=== PATIENT | male | born 1945 | race Caucasian/White ===

== ENCOUNTER 2018-08-06 21:17 | Emergency (ER) | payer MEDICARE, OTHER ==
[~2018-08-06] VITALS: Ht 193 cm; Wt 138.7 kg
[2018-08-06 21:22] VITALS: BP 161/66
[2018-08-06 22:17] LABS: ALANINE AMINOTRANSFERASE 27 U/L (12-78); ANION GAP 7 mmol/L (5-15); CALCIUM 8.5 mg/dL (8.5-10.1); CHLORIDE 108 mmol/L (98-107)
[2018-08-06 22:22] LABS: ALKALINE PHOSPHATASE 197 U/L (45-117); BILIRUBIN,TOTAL 1.2 mg/dL (0.2-1.0); CREATININE 1.04 mg/dL (0.7-1.3)
[2018-08-06 22:23] LABS: MD YES
[2018-08-06 22:24] LABS: MEAN CORPUSCULAR HEMOGLOBIN 29.2 pg (27.5-34.5); MEAN CORPUSCULAR HGB CONC 33.7 g/dL (33.2-36.2); MEAN CORPUSCULAR VOLUME 86.8 fL (81-97); MEAN PLATELET VOLUME 10.3 fL (7.4-10.4); PLATELET COUNT 81 x10^3/uL (130-400); RED BLOOD COUNT 4.03 x10^6/uL (4.38-5.82); RED CELL DISTRIBUTION WIDTH 20.5 % (9.4-14.8)
[2018-08-06 22:26] LABS: LYMPHS% (MANUAL) 20 % (22-44); MONOS#(MANUAL) 0.63 x10^3/uL (0.3-2.7); MONOS% (MANUAL) 18 % (2-9); SEG#(MANUAL) 2.17 x10^3/uL (1.8-6.8); SEGS% (MANUAL) 62 % (42-75)
[2018-08-06 22:27] LABS: <PLATELET ESTIMATE> DECREASED; <PLT MORPHOLOGY> NORMAL PLT MORPH; ANISOCYTOSIS 1+; HYPOCHROMIA 1+; TARGET CELLS 1+
[2018-08-06] MEDS ORDERED: FUROSEMIDE 40 MG TABLET ONE (22:46)
[2018-08-06] MEDS ORDERED: HYDROcodone/APAP 5/325 TABLET ONE (22:46)
[2018-08-06] MEDS ORDERED: FUROSEMIDE 20 MG TABLET PO ONE (23:00)
[2018-08-06] MEDS ORDERED: HYDROcodone/APAP 5/325 TABLET PO ONE (23:00)
== END 2018-08-06 23:10 | disposition home or self-care (01) ==
LOC: ED 23:04
DX: R60.0 Localized edema (principal); I10 Essential (primary) hypertension
CPT/HCPCS: 36415; 71045; 80053; 83880; 85025; 93005; 99284

== ENCOUNTER 2018-10-08 20:20 | Inpatient (IN) | payer MEDICARE ==
[~2018-10-08] VITALS: Ht 193 cm; Wt 136.9 kg
[2018-10-08] MEDS ORDERED: ONDANSETRON 2MG/ML, 2ML ONE (20:53)
[2018-10-08] MEDS ORDERED: FAMOTIDINE 20 MG/2 ML ONE (20:54)
[2018-10-08] MEDS ORDERED: FAMOTIDINE 20 MG/2 ML IVP ONE (21:00)
[2018-10-08] MEDS ORDERED: ONDANSETRON 2MG/ML, 2ML IVPush ONE (21:00)
[2018-10-08] MEDS ORDERED: SODIUM CHLORIDE FLUSH 10ML SYR IVF ONE (21:00)
[2018-10-08 21:03] LABS: MEAN CORPUSCULAR HEMOGLOBIN 30.6 pg (27.5-34.5); MEAN CORPUSCULAR HGB CONC 33.9 g/dL (33.2-36.2); MEAN CORPUSCULAR VOLUME 90.3 fL (81-97); RED BLOOD COUNT 4.13 x10^6/uL (4.38-5.82); RED CELL DISTRIBUTION WIDTH 18.1 % (9.4-14.8)
[2018-10-08 21:10] LABS: INTERNATIONAL NORMALIZED RATIO 1.32 (0.93-1.1); PROTHROMBIN TIME 13.8 Seconds (9.6-11.5)
[2018-10-08 21:13] LABS: ALANINE AMINOTRANSFERASE 21 U/L (12-78); ALBUMIN 3.2 g/dL (3.4-5.0); ANION GAP 7 mmol/L (5-15); CALCIUM 8.8 mg/dL (8.5-10.1); CHLORIDE 113 mmol/L (98-107); CREATININE 1.05 mg/dL (0.7-1.3)
[2018-10-08 21:15] LABS: ALKALINE PHOSPHATASE 155 U/L (45-117); BILIRUBIN,TOTAL 1.9 mg/dL (0.2-1.0); TOTAL PROTEIN 7.1 g/dL (6.4-8.2)
[2018-10-08 21:23] LABS: TROPONIN I 0.022 ng/mL (0.000-0.045)
[2018-10-08 21:24] LABS: BASOPHILS # (AUTO) 0.01 x10^3/uL (0-0.1); BASOPHILS % (AUTO) 0 % (0-1); EOSINOPHILS # (AUTO) 0.12 x10^3/uL (0-0.4); EOSINOPHILS % (AUTO) 2 % (1-7); LYMPHOCYTES % (AUTO) 12 % (22-44); MD SCAN; MEAN PLATELET VOLUME 10.1 fL (7.4-10.4); MONOCYTES # (AUTO) 0.76 x10^3/uL (0.2-0.8); MONOCYTES % (AUTO) 15 % (2-9); NEUTROPHILS % (AUTO) 71 % (42-75); PLATELET COUNT 97 x10^3/uL (130-400)
--- NOTE | 2018-10-08 21:45 | NUR ---
SBAR report received from RN, Meryl. Pt back to room from CT at this time.
[2018-10-08] MEDS ORDERED: OCTREOTIDE 500 MCG in SODIUM CHLORIDE 0.9% 249 ML IV PRN (22:14)
[2018-10-08] MEDS ORDERED: DIPHENHYDRAMINE 50 MG/ML, 1ML ONE (22:18)
[2018-10-08] MEDS ORDERED: OCTREOTIDE 100MCG/ML, 1ML (0.1MG/ML) ONE ×2 (22:18→22:36)
[2018-10-08] MEDS ORDERED: OCTREOTIDE 100MCG/ML, 1ML (0.1MG/ML) IV ONE (22:30)
[2018-10-08] MEDS ORDERED: DIPHENHYDRAMINE 50 MG/ML, 1ML IVPush ONE (22:30)
--- NOTE | 2018-10-08 22:42 | NUR ---
Dr. Squires at bedside to evaluate pt and discuss ED findings. IV octreotide infusing.
--- NOTE | 2018-10-08 23:05 | NUR ---
Octreotide stopped per ERP. Pt ambulated to bathroom, no assistance required.
--- NOTE | 2018-10-08 23:12 | NUR ---
Isaac HERNANDEZ, at bedside to evaluate pt for admission.
--- NOTE | 2018-10-08 23:28 | NUR ---
Telephone SBAR report given to RNToyin.
[2018-10-08] MEDS ORDERED: ONDANSETRON 2MG/ML, 2ML IVPush PRN (23:30)
[2018-10-08] MEDS ORDERED: GOLYTELY 4,000ML ORAL.SOL PO ONE (23:30)
[2018-10-09 00:14] VITALS: BP 139/67
[2018-10-09] MEDS: SODIUM CHLORIDE FLUSH 10ML SYR IVF SCH ×3 (01:21→21:00)
[2018-10-09] MEDS ORDERED: ROPINIROLE 0.25MG TABLET PO SCH (01:30)
[2018-10-09] MEDS ORDERED: DIPHENHYDRAMINE 50 MG/ML, 1ML IVPush ONE (01:30)
[2018-10-09 02:49] VITALS: BP 135/63
[2018-10-09 03:37] LABS: ALANINE AMINOTRANSFERASE 21 U/L (12-78); ALBUMIN 3.2 g/dL (3.4-5.0); ANION GAP 7 mmol/L (5-15); CALCIUM 8.3 mg/dL (8.5-10.1); CHLORIDE 112 mmol/L (98-107); CREATININE 1.32 mg/dL (0.7-1.3)
[2018-10-09 03:39] LABS: ALKALINE PHOSPHATASE 142 U/L (45-117); BILIRUBIN,TOTAL 2.2 mg/dL (0.2-1.0); TOTAL PROTEIN 6.8 g/dL (6.4-8.2)
[2018-10-09 03:51] LABS: BASOPHILS # (AUTO) 0.01 x10^3/uL (0-0.1); BASOPHILS % (AUTO) 0 % (0-1); EOSINOPHILS # (AUTO) 0.09 x10^3/uL (0-0.4); EOSINOPHILS % (AUTO) 2 % (1-7); LYMPHOCYTES % (AUTO) 15 % (22-44); MD NO; MEAN CORPUSCULAR HEMOGLOBIN 30.7 pg (27.5-34.5); MEAN CORPUSCULAR HGB CONC 34.1 g/dL (33.2-36.2); MEAN CORPUSCULAR VOLUME 90.1 fL (81-97); MEAN PLATELET VOLUME 9.9 fL (7.4-10.4); MONOCYTES # (AUTO) 0.54 x10^3/uL (0.2-0.8); MONOCYTES % (AUTO) 14 % (2-9); NEUTROPHILS # (AUTO) 2.76 x10^3/uL (1.8-6.8); NEUTROPHILS % (AUTO) 69 % (42-75); PLATELET COUNT 92 x10^3/uL (130-400); RED BLOOD COUNT 3.97 x10^6/uL (4.38-5.82); RED CELL DISTRIBUTION WIDTH 17.8 % (9.4-14.8)
[2018-10-09] MEDS ORDERED: OMEPRAZOLE 20 MG CAPSULE.DR PO SCH (07:30)
[2018-10-09 07:46] VITALS: BP 117/63
[2018-10-09] MEDS: GUAIFENESIN 200 MG TABLET PO SCH ×2 (09:00→19:51)
[2018-10-09] MEDS: LACTOBACILLUS CHEW TABLET PO SCH ×3 (09:00→19:51)
[2018-10-09] MEDS: SODIUM CHLORIDE 0.9% 1,000 ML IV SCH (10:01)
[2018-10-09] MEDS ORDERED: PROPOFOL 10 MG/ML, 20ML ONE (12:50)
[2018-10-09] MEDS ORDERED: OXYcodone 5 MG/5 ML ORAL.SOL UDC PO PRN (13:30)
[2018-10-09] MEDS ORDERED: ACETAMINOPHEN 325 MG TABLET PO PRN (13:30)
[2018-10-09] MEDS ORDERED: FENTANYL PF 100 MCG/2ML IV PRN (13:30)
[2018-10-09] MEDS ORDERED: ONDANSETRON ODT 8 MG PO PRN (13:30)
[2018-10-09] MEDS ORDERED: ONDANSETRON 2MG/ML, 2ML IV PRN (13:30)
[2018-10-09 13:50] VITALS: BP 148/65
[2018-10-09 19:33] VITALS: BP 131/64
[2018-10-09] MEDS ORDERED: DIPHENHYDRAMINE 50 MG CAPSULE PO ONE (22:00)
[2018-10-09] MEDS ORDERED: ROPINIROLE 0.25MG TABLET PO PRN (22:00)
[2018-10-10 00:02] VITALS: BP 136/70
[2018-10-10] MEDS: SODIUM CHLORIDE 0.9% 1,000 ML IV SCH (03:59)
[2018-10-10 04:00] VITALS: BP 133/70
[2018-10-10 04:44] LABS: MEAN CORPUSCULAR HEMOGLOBIN 30.7 pg (27.5-34.5); MEAN CORPUSCULAR HGB CONC 33.8 g/dL (33.2-36.2); MEAN CORPUSCULAR VOLUME 90.9 fL (81-97); MEAN PLATELET VOLUME 9.5 fL (7.4-10.4); PLATELET COUNT 78 x10^3/uL (130-400); RED BLOOD COUNT 3.67 x10^6/uL (4.38-5.82); RED CELL DISTRIBUTION WIDTH 17.9 % (9.4-14.8)
[2018-10-10 04:53] LABS: ANION GAP 5 mmol/L (5-15); CALCIUM 8.5 mg/dL (8.5-10.1); CHLORIDE 112 mmol/L (98-107)
[2018-10-10 04:54] LABS: CREATININE 1.33 mg/dL (0.7-1.3)
[2018-10-10 05:43] LABS: BASOPHILS # (AUTO) 0.02 x10^3/uL (0-0.1); BASOPHILS % (AUTO) 1 % (0-1); EOSINOPHILS # (AUTO) 0.07 x10^3/uL (0-0.4); EOSINOPHILS % (AUTO) 3 % (1-7); LYMPHOCYTES # (AUTO) 0.43 x10^3/uL (1-3.4); LYMPHOCYTES % (AUTO) 15 % (22-44); MD SCAN; MONOCYTES # (AUTO) 0.51 x10^3/uL (0.2-0.8); MONOCYTES % (AUTO) 17 % (2-9); NEUTROPHILS # (AUTO) 1.94 x10^3/uL (1.8-6.8); NEUTROPHILS % (AUTO) 65 % (42-75)
[2018-10-10] MEDS ORDERED: CARVEDILOL 3.125 MG TABLET PO SCH (07:30)
[2018-10-10 07:44] VITALS: BP 132/70
[2018-10-10] MEDS: GUAIFENESIN 200 MG TABLET PO SCH (08:25)
[2018-10-10] MEDS: LACTOBACILLUS CHEW TABLET PO SCH (08:25)
[2018-10-10] MEDS: SODIUM CHLORIDE FLUSH 10ML SYR IVF SCH (08:26)
[2018-10-10] MEDS ORDERED: ACID1TAB7 PO (11:12)
[2018-10-10] MEDS ORDERED: CARV3.1212 PO (11:12)
== END 2018-10-10 13:30 | disposition home or self-care (01) | DRG 433 ==
LOC: ED 21:14 → EDIP 23:03 → 3NW 23:44 → DCLOUNGE 10-10 13:06
PROVIDERS: ADMIT Hospitalist; ATTEND Hospitalist
PROC: 0DJD8ZZ Inspection of Lower Intestinal Tract, Via Natural or Artificial Opening Endoscopic (ICD-10-PCS; principal; 2018-10-09 13:45)
DX: K70.30 Alcoholic cirrhosis of liver without ascites (principal); K76.6 Portal hypertension; D68.9 Coagulation defect, unspecified; E44.1 Mild protein-calorie malnutrition; D62 Acute posthemorrhagic anemia; I85.10 Secondary esophageal varices without bleeding; K64.4 Residual hemorrhoidal skin tags; K57.30 Diverticulosis of large intestine without perforation or abscess without bleeding; D69.6 Thrombocytopenia, unspecified; E66.9 Obesity, unspecified; F10.20 Alcohol dependence, uncomplicated; G25.81 Restless legs syndrome; G47.00 Insomnia, unspecified; K76.0 Fatty (change of) liver, not elsewhere classified; Z86.010 Personal history of colon polyps; Z86.73 Personal history of transient ischemic attack (TIA), and cerebral infarction without residual deficits; Z88.6 Allergy status to analgesic agent; Z68.36 Body mass index [BMI] 36.0-36.9, adult
CPT/HCPCS: 36415; 74176; 80048; 80053; 83690; 83735; 84484; 85014; 85018; 85025; 85610; 86850; 86900; 93005; 93970; 96374; 96375; G0378; J2354; J2405; J2704; J1200; J3490; J7030; J7050

== ENCOUNTER 2021-04-07 22:57 | Emergency (ER) | payer MEDICARE, OTHER ==
[~2021-04-07] VITALS: Ht 193 cm; Wt 122.7 kg
[~2021-04-07 22:57] MED LIST: ACID1TAB7 PO; CARV3.1212 PO
--- NOTE | 2021-04-07 23:49 | NUR ---
pt attempting to get out of bed and leave. pt stated "im getting the fuck out of here". this rn told pt because of his statments of si, pt needs to stay here for his own safety. pt getting upset with this rn but this rn was able to convinse him to stay for right now. erp updated and to be seen shortly
--- NOTE | 2021-04-08 00:10 | NUR ---
PT ATTEMPTED TO WALK OUT OF ER AFTER ERP TALKED WITH PT. PT WAS PLACED ON A HOLD AND EXPLAINED TO PT THE PROCESS. PT GETTING AGITATED. SECURITY CALLED AND PT WENT BACK TO ROOM. ALL BELONGINGS PLACED IN LOCKER. SITTER IN LINE OF SIGHT AND AWARE OF ELOPEMENT RISK.
[2021-04-08 01:06] LABS: BASOPHILS % (AUTO) 1 % (0-1); EOSINOPHILS % (AUTO) 3 % (1-7); LYMPHOCYTES % (AUTO) 25 % (22-44); MEAN CORPUSCULAR HEMOGLOBIN 26.2 pg (27.5-34.5); MEAN CORPUSCULAR HGB CONC 32.1 g/dL (33.2-36.2); MEAN PLATELET VOLUME 8.2 fL (7.4-10.4); MONOCYTES % (AUTO) 14 % (2-9); NEUTROPHILS % (AUTO) 57 % (42-75); PLATELET COUNT 106 x10^3/uL (130-400); RED BLOOD COUNT 4.25 x10^6/uL (4.38-5.82); RED CELL DISTRIBUTION WIDTH 18.3 % (9.4-14.8)
[2021-04-08 01:15] LABS: ALANINE AMINOTRANSFERASE 18 U/L (12-78); ALBUMIN 2.8 g/dL (3.4-5.0); ANION GAP 5 mmol/L (5-15); CALCIUM 8.3 mg/dL (8.5-10.1); CHLORIDE 107 mmol/L (98-107); CREATININE 1.12 mg/dL (0.7-1.3)
[2021-04-08 01:16] LABS: SALICYLATE LEVEL < 1.7 mg/dL (2.8-20.0)
[2021-04-08 01:17] LABS: ALKALINE PHOSPHATASE 99 U/L (45-117); BILIRUBIN,TOTAL 0.7 mg/dL (0.2-1.0); TOTAL PROTEIN 7.1 g/dL (6.4-8.2)
--- NOTE | 2021-04-08 02:31 | NUR ---
BEDSIDE REPORT RECEIVED FROM MANPREET RICH
--- NOTE | 2021-04-08 02:56 | NUR ---
PT SUPINE ON GURNEY, RESTING CALMLY WITH EYES CLOSED. SAFETY PRECAUTIONS IN PLACE, SITTER IN VIEW. NO NEEDS AT THIS TIME.
--- NOTE | 2021-04-08 03:20 | NUR ---
PT MOVED FROM ED GURNEY TO HOSPITAL BED. PT TOLERATED WELL. NO ADDITIONAL NEEDS. SAFETY PRECAUTIONS REMAIN IN PLACE. SITTER IN VIEW.
[2021-04-08] MEDS ORDERED: LORazepam 1MG TABLET ONE (03:37)
[2021-04-08] MEDS ORDERED: ACETAMINOPHEN 500 MG TABLET ONE (03:37)
--- NOTE | 2021-04-08 03:41 | NUR ---
PT CONTINUALLY PACING IN ROOM, SHOUTING "MY LEGS HURT AND IM CRAWLING OUT OF MY OWN SKIN, I NEED SOME MEDS TO HELP THAT." ERP NOTIFIED AND PT MEDICATED PER EMAR.
[2021-04-08] MEDS ORDERED: ACETAMINOPHEN 500 MG TABLET PO ONE (04:00)
[2021-04-08] MEDS ORDERED: LORazepam 1MG TABLET PO ONE (04:00)
--- NOTE | 2021-04-08 06:02 | NUR ---
ATTEMPT TO BREATHALYZE PT, PT SLEEPING AND UNCOOPERATIVE AT THIS TIME. UNABLE TO OBTAIN AN UP TO DATE RONALDO. ERP AWARE.
[2021-04-08 06:54] LABS: AMPHETAMINE SCREEN, URINE Negative (Negative); BARBITURATE SCREEN, URINE Negative (Negative); BENZODIAZEPINE SCREEN, URINE Negative (Negative); CANNABINOID SCREEN, URINE Positive (Negative); COCAINE SCREEN, URINE Negative (Negative); METHADONE SCREEN, URINE Negative (Negative); OPIATE SCREEN, URINE Negative (Negative)
--- NOTE | 2021-04-08 06:54 | NUR ---
BEDSIDE REPORT TO ASAD RICH
--- NOTE | 2021-04-08 06:54 | NUR ---
RECEIVED REPORT FROM TERRI RICH. PT AMBULATED TO PHONE & RETURNED TO [facility] WITH STEADY GAIT, CALM & COOPERATIVE, RESPONDS APPROP TO STAFF, NO NEEDS AT THIS TIME, PT REMAINS IN SAFE ENVIRONMENT, SITTER IN VIEW, CALL LIGHT WITHIN REACH.
--- NOTE | 2021-04-08 08:02 | NUR ---
PT SLEEPING CALMLY ON BED, NAD WITH EQUAL CHEST RISE/FALL, NO NEEDS AT THIS TIME, PT REMAINS IN SAFE ENVIRONMENT, SITTER IN VIEW.
[2021-04-08 08:27] VITALS: BP 158/65
--- NOTE | 2021-04-08 08:27 | NUR ---
MEAL TRAY GIVEN
[2021-04-08] MEDS ORDERED: CEPHALEXIN 500 MG CAPSULE PO ONE (09:00)
--- NOTE | 2021-04-08 09:00 | NUR ---
PT AMBULATED TO & RETURNED TO [facility] WITH STEADY GAIT, CALM & COOPERATIVE, RESPONDS APPROP TO STAFF, STATES "I WANT TO GO HOME", DENIES SI/HI, DR LORENZO AWARE OF PT STATUS, COMFORT MEASURES PROVIDED, PT REMAINS IN SAFE ENVIRONMENT, SITTER IN VIEW.
--- NOTE | 2021-04-08 10:05 | NUR ---
PT BECOMING MORE RESTLESS BUT COOPERATIVE, FREQUENTLY AMBULATING WITH STEADY GAIT TO PHONE & BR, RETURNS TO [facility], RESPONDS APPROP TO STAFF, NO NEEDS AT THIS TIME, PT REMAINS IN SAFE ENVIRONMENT, SITTER IN VIEW.
[2021-04-08] MEDS ORDERED: CEPHALEXIN 500 MG CAPSULE ONE (10:11)
--- NOTE | 2021-04-08 11:15 | NUR ---
Patient given discharge instructions and they have confirmed that they understand the instructions. Patient ambulatory with steady gait. NAD, all questions answered appropriately, denies additional needs at this time. No personal belongings left in room or locker after discharge.
== END 2021-04-08 11:17 | disposition home or self-care (01) ==
LOC: ED 04-08 04:31 → UNDOADMOB 04-08 04:43 → EDIP 04-08 04:43
DX: F43.21 Adjustment disorder with depressed mood (principal); F32.9 Major depressive disorder, single episode, unspecified; F10.220 Alcohol dependence with intoxication, uncomplicated; L03.115 Cellulitis of right lower limb; I10 Essential (primary) hypertension; Y90.0 Blood alcohol level of less than 20 mg/100 ml
CPT/HCPCS: 36415; 80053; 80299; 80307; 80320; 80329; 85025; 99284; G0480